=== PATIENT | male | born 1950 | race Caucasian/White ===

== ENCOUNTER 2018-06-26 16:22 | Emergency (ER) | payer BC ==
[2018-06-26 16:30] VITALS: PULSE 88; RESP 18
[2018-06-26] MEDS ORDERED: LIDOCAINE 1% INJ 10MG/ML (20 ML MDV) SQ STA (16:41)
[2018-06-26] MEDS ORDERED: DIPH,PERTUS(ACELL)TETVAC-LF 0.5 ML VIAL IM ONE (16:41)
--- NOTE | 2018-06-26 17:28 | ED ---
General Adult HPI - General Chief complaint: Wound/Laceration Stated complaint: LEFT MIDDLE FINGER LACERATION Source: patient, RN notes reviewed, old records reviewed Mode of arrival: ambulatory Limitations: no limitations - History of Present Illness Initial comments: 5-year-old male patient with pertinent past medical history presents to ED after sustaining a laceration to the third digit on his left hand. Patient states that he is picking up a broken bowl when he cut this finger. Patient has any other injury. Patient denies use of blood thinners. Patient states that the bowl was clean. Patient denies chest pain, shortness breath, abdominal pain, nausea vomiting diarrhea, any other symptoms. Systemic: Pt denies fatigue, myalgia, fever/chills, rash. Pt denies weakness, night sweats, weight loss. Neuro: Pt denies headache, visual disturbances, syncope or pre-syncope. HEENT: Pt denies ocular discharge or irritation, otalgia, rhinorrhea, pharyngitis or notable lymphadenopathy. Cardiopulmonary: Pt denies chest pain, SOB, heart palpitations, dyspnea on exertion. Abdominal/GI: Pt denies abdominal pain, n/v/d. : Pt denies dysuria, burning w/ urination, frequency/urgency. Denies new onset urinary or bowel incontinence. MSK: Pt denies myalgia, loss of strength or function in extremities. Neuro: Pt denies new onset weakness, paresthesias. - Related Data Previous Rx's Medication Instructions Recorded Cephalexin [Keflex] 500 mg PO Q6HR 3 Days #12 cap 06/26/18 Allergies Allergy/AdvReac Type Severity Reaction Status Date / Time No Known Allergies Allergy Verified 06/26/18 16:36 Review of Systems ROS Statement: Those systems with pertinent positive or pertinent negative responses have been documented in the HPI. ROS Other: All systems not noted in ROS Statement are negative. Past Medical History Past Medical History: CVA/TIA, Hyperlipidemia, Hypertension History of Any Multi-Drug Resistant Organisms: None Reported Additional Past Surgical History / Comment(s): oral Past Psychological History: No Psychological Hx Reported Smoking Status: Never smoker Past Alcohol Use History: None Reported Past Drug Use History: None Reported General Exam - General Exam Comments Initial Comments: Constitutional: NAD, AOX3, Pt has pleasant affect. HEENT: NC/AT, trachea midline, neck supple, no lymphadenopathy. Posterior pharynx non erythematous, without exudates. External ears appear normal, without discharge. Mucous membranes moist. Eyes PERRLA, EOM intact. There is no scleral icterus. No pallor noted. Cardiopulmonary: RRR, no murmurs, rubs or gallops, no JVD noted. Lungs CTAB in anterior and posterior barkley. No peripheral edema. Abdominal exam: Abdomen soft and non-distended. Abdomen non-tender to palpation in all 4 quadrants. Bowel sounds active in LLQ. No hepatosplenomegaly. No ecchymosis Neuro: CN II-XII grossly intact. No nuchal rigidity. MSK: Approximately 4 cm laceration to third digit on left hand just distal to MCP joint. Patient has extension, flexion, radial, ulnar deviation of digit. Full range of motion intact. Full sensation intact. Neurovascularly intact, capillary refill less than 2 seconds. Wound explored and irrigated no ligamentous or bony injury or foreign body. No other injury sustained. Patient has full range of motion of all digits both hands and wrists. Patient neurovascularly intact after suture placement. No posterior calf tenderness bilaterally, homans sign negative bilaterally. Posterior tibialis and radial pulse +2 bilaterally. Sensation intact in upper and lower extremities. Full active ROM in upper and lower extremities, 5/5 stregnth. Limitations: no limitations Course Vital Signs 06/26/18 06/26/18 16:26 19:30 Temperature 99.2 F 99.5 F Pulse Rate 88 88 Respiratory 18 18 Rate Blood Pressure 143/82 163/85 O2 Sat by Pulse 95 95 Oximetry Procedures - Laceration Laceration #1 Consent Obtained: verbal consent Time Out Performed: Yes Indication: laceration Site: hand Size (cm): 4 Description: linear Depth: simple, single layer Anesthetic Used: lidocaine 1% Anesthesia Technique: local infiltration Amount (mls): 4 Pre-repair: wound explored, irrigated extensively Type of Sutures: nylon Size of Sutures: 5-0 Number of Sutures: 8 Technique: simple, interrupted Patient Tolerated Procedure: well, no complications Medical Decision Making - Medical Decision Making 68-year-old male patient with pertinent past medical history presents to ED after sustaining a laceration to the third digit on his left hand. Patient states that he is picking up a broken bowl when he cut this finger. Patient has any other injury. Patient denies use of blood thinners. Patient states that the bowl was clean. Physical exam displayed Approximately 4 cm laceration to third digit on left hand just distal to MCP joint. Patient has extension, flexion, radial, ulnar deviation of digit. Full range of motion intact. Full sensation intact. Neurovascularly intact, capillary refill less than 2 seconds. No other injury sustained. Wound explored and irrigated no ligamentous or bony injury or foreign body. Plain film did not display any foreign body or acute osseous abnormality. Wound was closed primarily with 8 simple interrupted sutures. Patient tolerated procedure well. Patient discharged with 3 days of Keflex. Patient to follow with PCP in 1-2 days. Patient to return to ED in 7-10 days if sutures removed. Patient educated extensively about has symptoms of infection. Patient verbalized understanding. Patient to return to ED if any of the signs and symptoms of infection is develop, or any other signs or symptoms develop, or if condition worsens in any way. Tetanus updated. Case discussed with Dr. Connors. Disposition Clinical Impression: Laceration Disposition: HOME SELF-CARE Condition: Good Instructions: Laceration (ED) Additional Instructions: Patient to adhere to previously discussed treatment plan and will take medication(s) as directed. Patient to follow up with PCP in 1-2 days. Patient to return to ED if symptoms do not improve. Prescriptions: Cephalexin [Keflex] 500 mg PO Q6HR 3 Days #12 cap Is patient prescribed a controlled substance at d/c from ED?: No Referrals: Steven Keating MD [Primary Care Provider] - 1-2 days Time of Disposition: 19:12
--- NOTE | 2018-06-26 18:14 | XR ---
EXAMINATION TYPE: XR hand complete LT DATE OF EXAM: 06/26/2018 COMPARISON: NONE HISTORY: Pain and laceration TECHNIQUE: 3 views FINDINGS: I see no fracture nor dislocation. There is no sign of radiopaque foreign body. Joint space s are fairly normal. There is spurring at the first carpometacarpal joint. IMPRESSION: No acute abnormality of the left hand.
[2018-06-26] MEDS ORDERED: ETOMIDATE 2 MG/ML 10 ML VIAL IVP STA (19:21)
[2018-06-26 19:32] VITALS: BP 163/85; TEMP 99.5
== END 2018-06-26 19:30 | disposition home or self-care (01) ==
LOC: EC 16:22
DX: S61.213A Laceration without foreign body of left middle finger without damage to nail, initial encounter (principal); Z23 Encounter for immunization; Z86.73 Personal history of transient ischemic attack (TIA), and cerebral infarction without residual deficits; W26.8XXA Contact with other sharp object(s), not elsewhere classified, initial encounter
CPT/HCPCS: 73130; 90715; 99283; 12002; 90471; J2001